=== PATIENT | male | born 1985 | race African-American/Black ===

== ENCOUNTER 2016-06-17 09:10 | Emergency (ER) | payer OTHER ==
[~2016-06-17] VITALS: Ht 167.6 cm; Wt 81.2 kg
[~2016-06-17 09:10] MED LIST: AFRIN,GENASAL D15 ML BOTH NARES; ALBUTEROL SULF8.5 GM IH; AMOXICILLIN500 M1 PO; AUGMENTIN875 MG PO; BENZTROPINE MESY1 MG PO; BUPROPION XL150 MG PO; BUSPAR5 MG PO; BUSPIRONE HCL10 MG PO; COGENTIN1 MG PO; DOXEPIN HCL100 MG PO; FIORICET 50-301 EACH PO; FLONASE16 G1 BOTH NARES; FLOVENT 11120 INHALA IH; HALDOL10 MG PO; IBUPROFEN600 MG PO; KEFLEX500 MG PO; LORTAB 5-325 M1 EACH PO; MEDROL DOSEPAK4 MG PO; MOTRIN800 MG PO; MUCUS ER600 MG PO; PROZAC20 M1 PO; PROzac PO; SINEQUAN50 MG PO; SUDAFED 12-HOU120 MG PO; TESSALON PERLE100 MG PO; VENTOLIN HFA18 GM IH; ZITHROMAX Z-PA250 MG PO; ZYRTEC10 M2 PO; no home; risperDAL PO
[2016-06-17 09:56] LABS: EOSINOPHIL (%) 0.1 % (0-5); HEMATOCRIT 42.8 % (38.0-50.0); IMMATURE GRANULOCYTE (%) 0.2 % (0.0-0.7); INSTRUMENT ABS NEUTROPHIL CT 8.2 K/uL; LYMPHOCYTE COUNT 1.1 K/uL (1.0-2.8); MCH 27.9 PG (29.0-34.0); MCHC 32.5 G/DL (30.0-36.0); MCV 85.9 FL (86-99); MEAN PLAT.VOLUME 9.3 uM^3 (9.0-12.4); MONOCYTE (%) 5.1 % (3-12); MONOCYTE COUNT 0.5 K/uL (0-0.8); NEUTROPHIL (%) 83.7 % (45-76); NEUTROPHIL COUNT 8.2 K/uL (1.8-6.4); PLATELET COUNT 224 K/uL (156-360); RBC DIS.WIDTH-CV 14.3 % (11.8-14.6); RBC DIS.WIDTH-SD 45.1 % (39-53); RED BLOOD COUNT 4.98 M/uL (4.00-5.50); WHITE BLOOD COUNT 9.8 K/uL (4.1-10.2)
[2016-06-17 10:04] LABS: CHLORIDE 106 mEq/L (99-109); POTASSIUM 3.7 mEq/L (3.7-5.4); SODIUM 137 mEq/L (136-147)
[2016-06-17 10:05] LABS: GLUCOSE 114 mg/dL (70-99)
[2016-06-17 10:07] LABS: ANION GAP 9 MEQ/L (2-14)
[2016-06-17 10:09] LABS: GFR ESTIMATE (CALCULATED) > 59 mL/min/
[2016-06-17 10:10] LABS: UREA NITROGEN (BUN) 7 mg/dL (9-23)
[2016-06-17 12:06] LABS: INFLUENZA A VIRAL ANTIGEN POSITIVE; INFLUENZA B VIRAL ANTIGEN NEGATIVE
[2016-06-17 12:07] LABS: ADD MIUA? YES; BILIRUBIN NEGATIVE; BLOOD MODERATE; COLOR YELLOW ((YELLOW)); GLUCOSE (STRIP) NEGATIVE; KETONES NEGATIVE; LEUKOCYTES TRACE; NITRITE NEGATIVE; PROTEIN (STRIP) 30; SPECIFIC GRAVITY 1.024 (1.000-1.030); UROBILINOGEN 0.2 MG/DL (0.2-1.0)
[2016-06-17 12:15] LABS: BACTERIA RARE /HPF; EPITHELIAL CELLS RARE /HPF; MUCUS TRACE /LPF; UCUL ADDED? NO; WHITE BLOOD CELLS 0-5 /HPF (0-5)
[2016-06-17] MEDS ORDERED: ZOFRAN ODT4 MG PO (12:34)
[2016-06-17] MEDS ORDERED: NAPROSYN500 MG PO (12:34)
[2016-06-17] MEDS ORDERED: ROBITUSSIN NIG118 ML PO (12:34)
[2016-06-17 13:06] VITALS: BP 135/75
== END 2016-06-17 13:08 | disposition home or self-care (01) ==
LOC: EME 09:10
PROVIDERS: Nurse Practitioner Family
DX: J10.1 Influenza due to other identified influenza virus with other respiratory manifestations (principal); J45.909 Unspecified asthma, uncomplicated; R31.9 Hematuria, unspecified; F17.200 Nicotine dependence, unspecified, uncomplicated
CPT/HCPCS: 71020; 80048; 81003; 83605; 85025; 87502; 94640; 99281; 99284; J1885